=== PATIENT | female | born 1940 | race Caucasian/White ===

== ENCOUNTER 2021-05-15 07:41 | Outpatient (CLI) | payer OTHER ==
[~2021-05-15 07:41] MED LIST: LIPITOR20 MG; NORVASC5 MG; VASOTEC2.5 MG
== END 2021-05-15 07:42 | disposition home or self-care (01) ==
LOC: SONOGRAMA 07:41
PROVIDERS: ATTEND Pathology Anatomic Pathology & Clinical Pathology
DX: E04.2 Nontoxic multinodular goiter (principal)